=== PATIENT | male | born 1990 | race African-American/Black ===

== ENCOUNTER 2022-11-17 02:08 | Emergency (ER) | payer OTHER ==
[~2022-11-17] VITALS: Ht 188 cm; Wt 144.7 kg
[2022-11-17] MEDS ORDERED: CYCLOBENZAPRINE 10 MG TABLET PO ONE (02:30)
[2022-11-17] MEDS ORDERED: KETOROLAC TROMETHAMINE INJ 60 MG/2 ML VIAL IM ONE (02:30)
[2022-11-17] MEDS ORDERED: CYCLOBENZAPRINE 10 MG TABLET ONE (02:36)
[2022-11-17] MEDS ORDERED: KETOROLAC TROMETHAMINE INJ 30 MG/ML VIAL ONE (02:36)
[2022-11-17] MEDS ORDERED: CYCL5TAB PO (03:25)
[2022-11-17] MEDS ORDERED: NAPR-1164 PO (03:25)
[2022-11-17 03:30] VITALS: BP 135/88; TEMP 98; O2SAT 98
== END 2022-11-17 03:30 | disposition home or self-care (01) ==
LOC: ER 02:13
DX: S39.012A Strain of muscle, fascia and tendon of lower back, initial encounter (principal); V49.09XA Driver injured in collision with other motor vehicles in nontraffic accident, initial encounter; Y93.89 Activity, other specified; Y92.89 Other specified places as the place of occurrence of the external cause; Y99.8 Other external cause status
CPT/HCPCS: 99285; 72131; 96372; J1885

== ENCOUNTER 2023-07-19 19:58 | Emergency (ER) | payer OTHER ==
[~2023-07-19] VITALS: Ht 190.5 cm; Wt 152.9 kg
[~2023-07-19 19:58] MED LIST: CYCL5TAB PO; NAPR-1164 PO
[2023-07-19 21:00] LABS: APPEARANCE,URINE CLEAR (CLEAR); BILIRUBIN,URINE NEGATIVE (NEGATIVE); BLOOD, URINE 2+ Ery/uL (NEGATIVE); COLOR,URINE YELLOW (YELLOW); KETONES,URINE NEGATIVE (NEGATIVE); LEUKOCYTE ESTERASE ,URINE NEGATIVE (NEGATIVE); NITRITE, URINE NEGATIVE (NEGATIVE); PH,URINE 6.5 (5.0-8.0); PROTEIN,URINE TRACE mg/dl (NEGATIVE); UGLUCOSE NEGATIVE (NEGATIVE)
[2023-07-19 21:13] LABS: BASOPHILS % (AUTO) 0.6 % (0.0-2.0); EOSINOPHILS # (AUTO) 0.3 K/uL (0.0-0.7); EOSINOPHILS % (AUTO) 3.9 % (0.0-6.0); HEMATOCRIT 37 % (39-51); HEMOGLOBIN 16.1 g/dL (13.5-17.5); LYMPHOCYTES # (AUTO) 2.4 K/uL (0.8-4.8); LYMPHOCYTES % (AUTO) 28.8 % (20.0-44.0); MEAN CORPUSCULAR HEMOGLOBIN 35 PG (26.0-33.0); MEAN CORPUSCULAR HGB CONC 44 g/dl (31.0-36.0); MEAN CORPUSCULAR VOLUME 80 fL (80-96); MONOCYTES # (AUTO) 0.5 K/uL (0.1-1.30); MONOCYTES % (AUTO) 6.5 % (2.0-12.0); NEUTROPHILS # (AUTO) 4.9 K/uL (1.8-8.9); NEUTROPHILS % (AUTO) 60.2 % (43.0-81.0); PLATELET COUNT (AUTO) 310 K/uL (150-450); RED BLOOD CELL COUNT(AUTO) 4.55 MIL/uL (4.5-6.0); RED CELL DISTRIBUTION WIDTH 16.2 % (11.5-15.0); WHITE BLOOD COUNT (AUTO) 8.2 K/uL (4.3-11.0)
[2023-07-19 21:23] LABS: WBC,URINE 0-2 /HPF (0-3)
[2023-07-19 21:24] LABS: ADD URINE CULTURE NO; BACTERIA,URINE Rare /HPF (None Seen); SQUAMOUS EPITHELIAL CELL,UR Rare /HPF (None Seen)
[2023-07-19] MEDS: IV NS 0.9% 1,000 ML BAG IV ONE (21:41)
[2023-07-19 21:42] LABS: BILIRUBIN,DIRECT 0.1 mg/dL (0.0-0.2); BILIRUBIN,TOTAL 1.7 mg/dL (0.2-1.0); CREATININE 1.1 mg/dL (0.6-1.3); POTASSIUM 4.2 mmol/L (3.5-5.1); TOTAL PROTEIN, SERUM 8.8 g/dL (6.4-8.2)
[2023-07-19] MEDS ORDERED: KETOROLAC TROMETHAMINE INJ 30 MG/ML VIAL ONE (21:57)
[2023-07-19] MEDS: KETOROLAC TROMETHAMINE 15 MG/ML VIAL IV ONE (22:03)
[2023-07-20] MEDS ORDERED: MORPHINE SULFATE INJ 4 MG/ML DISP.SYRIN ONE (00:01)
[2023-07-20 00:03] LABS: CALCIUM, SERUM 5.8 mg/dL (8.5-10.1)
[2023-07-20] MEDS ORDERED: ONDANSETRON HCL/PF 4 MG/2 ML VIAL ONE (00:05)
[2023-07-20] MEDS: IV NS 0.9% 1,000 ML BAG IV ONE (00:05)
[2023-07-20 00:09] LABS: CHOLESTEROL 91 mg/dL (<200); HDL CHOLESTEROL 16 mg/dL (40-60); LDL 17 mg/dL (0-99); TRIGLYCERIDES 667 mg/dL (30-150)
[2023-07-20] MEDS: ONDANSETRON HCL/PF 4 MG/2 ML VIAL IVP ONE (00:11)
[2023-07-20] MEDS: MORPHINE SULFATE INJ 2 MG/ML DISP.SYRIN IV ONE (00:11)
[2023-07-20] MEDS ORDERED: ONDA4TAB5 PO (00:37)
[2023-07-20] MEDS ORDERED: NAPR-1164 PO (00:37)
[2023-07-20 01:11] VITALS: BP 143/79; TEMP 97.9; O2SAT 96
== END 2023-07-20 01:10 | disposition home or self-care (01) ==
LOC: ER 20:02
DX: K85.90 Acute pancreatitis without necrosis or infection, unspecified (principal); K76.0 Fatty (change of) liver, not elsewhere classified; E66.9 Obesity, unspecified; E78.1 Pure hyperglyceridemia; Z79.899 Other long term (current) drug therapy; Z68.41 Body mass index [BMI] 40.0-44.9, adult
CPT/HCPCS: 99285; 74176; 96374; 96361 ×2; 80061; 85025; 80048; 83690; 80076; 81001; 36415; 96375; J1885; J7030 ×2; J2270; J2405